=== PATIENT | female | born 1970 | race Caucasian/White ===

== ENCOUNTER 2018-10-10 10:47 | Day surgery (SDC) | payer OTHER, MEDICAID ==
[2018-10-10] MEDS ORDERED: LIDOCAINE 4% SOLUTION 50 ML BTL (12:05)
[2018-10-10] MEDS ORDERED: FENTAnyl 50 MCG/ML VIAL (12:43)
[2018-10-10] MEDS ORDERED: MIDAZOLAM 1 MG/ML 2 ML INJ ×2 (12:43)
== END 2018-10-10 15:18 | disposition home or self-care (01) ==
LOC: GIL 10:47
DX: Z12.11 Encounter for screening for malignant neoplasm of colon (principal); K64.4 Residual hemorrhoidal skin tags; K29.50 Unspecified chronic gastritis without bleeding
CPT/HCPCS: 43239; 84703; 88305; 88312